=== PATIENT | male | born 2005 | race African-American/Black ===

== ENCOUNTER 2025-03-11 10:42 | Emergency (ER) | payer MEDICARE, SELFPAY ==
[2025-03-11 10:54] VITALS: BP 95/61; PULSE 48; RESP 20; TEMP 36.7; O2SAT 100
--- NOTE | 2025-03-11 11:14 | ED.GENADULT ---
HPI - General Adult General Chief complaint: Ear Stated complaint: ear infection/puffy face Time Seen by Provider: 03/11/25 11:15 Source: patient, RN notes reviewed and old records reviewed Mode of arrival: ambulatory Limitations: no limitations History of Present Illness HPI narrative: 19 year old patient accompanied by sister with complaints of left ear pain for the past few days with some ringing and some left upper facial swelling that started last night. Patient has been taking some cold medication for her symptoms reports moderate pain to her left ear with no drainage noted. Patient does have history of autism and asthma, hypertension and hydroplatic kidney. MD complaint: ear pain left ear Onset (ago): day(s) (few days with increased symptoms since last night) Severity: moderate Quality: aching Treatments prior to arrival: other (cold medication) Related Data Home Medications ?Medication ?Instructions ?Recorded ?Confirmed ?Last Taken ?Type albuterol sulfate 90 mcg/actuation inhalation 03/11/25 Unknown History aerosol inhaler amlodipine 5 mg tablet mg 03/11/25 Unknown History budesonide-formoterol HFA 80 2 inh inhalation Q12H 03/11/25 Unknown History mcg-4.5 mcg/actuation aerosol inhaler (Breyna) cholecalciferol (vitamin D3) 50 50 mcg PO DAILY 03/11/25 Unknown History mcg (2,000 unit) capsule (Vitamin D3) clindamycin phosphate 1 % lotion topical 03/11/25 Unknown History clonidine HCl 0.1 mg tablet mg 03/11/25 Unknown History desvenlafaxine succinate 25 mg mg PO 03/11/25 Unknown History tablet,extended release 24 hr hydroxyzine HCl 25 mg tablet mg 03/11/25 Unknown History montelukast 10 mg tablet mg 03/11/25 Unknown History triamcinolone acetonide 0.1 % topical 03/11/25 Unknown History topical ointment Allergies Allergy/AdvReac Type Severity Reaction Status Date / Time No Known Allergies Allergy Verified 03/11/25 11:11 Review of Systems Review of Systems: CONSTITUTIONAL: Denies malaise, chills, sweats, or fever. EYES: Denies visual changes, redness, or discharge. ENT: Reports rhinorrhea, congestion, sinus pain, left otalgia and no sore throat. CARDIOVASCULAR: Denies chest pain, palpitations, or edema. RESPIRATORY: Reports no cough.? Denies dyspnea. GASTROINTESTINAL: Denies abdominal pain, nausea, vomiting, diarrhea SKIN: Denies rash or itching. MUSCULOSKELETAL: Denies myalgia. NEUROLOGIC: Denies headache. All systems reviewed & are unremarkable except as noted in HPI and below PMFSH Past Medical History Medical History (Updated 03/13/25 @ 09:32 by Estephania Walden APRN) Uses feeding tube history in past Eczema Asthma Anxiety Hypertension Autism spectrum disorder Hypoplastic kidney Surgical History Surgical History (Updated 03/13/25 @ 09:27 by Estephania Walden APRN) History of cranial surgery x5 fused too soon [employer] (ventriculoperitoneal) shunt status Social History Social History (Updated 03/13/25 @ 09:29 by Estephania Walden APRN) Smoking status: Never smoker Alcohol intake: never Substance use: never Living arrangements: with family Additional gender identity comments: male but identifies as female Comments At time of signature, agree with nursing past medical, surgical, social and family history. There is no relevant family history pertinent to the presenting complaint Exam Narrative: GENERAL: Well-appearing, well-nourished, and in no acute distress. HEAD: Normocephalic EYES: PERRLA, conjunctivae clear ENT: Nares clear, turbinates edematous and erythematous, clear discharge,left facial tenderness with minimal swelling.. Mucous membranes moist.Left TM red, Right TM pearly avina with dull light reflex bilaterally; no tragal tenderness. Oropharynx erythematous without lesions. Tonsils not enlarged and without exudate, no drooling, no hoarseness, no trismus, uvula midline post nasal drainage noted NECK: Supple. No lymphadenopathy CHEST: Clear to auscultation, breath sounds equal. No wheezing, rhonchi, rales, or stridor. No respiratory distress, speaks in full sentences.no cough noted SAO2 100% on room air HEART: Regular rate and rhythm. No murmur heard. SKIN: Warm, dry, no rash. NEURO: Alert and oriented x3. PSYCH: Normal mood and affect Course Course Level of Care: Express Care Visit Vital Signs Vital signs: Vital Signs Temperature 36.7 C 03/11/25 10:54 Pulse Rate 48 L 03/11/25 10:54 Respiratory Rate 20 03/11/25 10:54 Blood Pressure 95/61 L 03/11/25 10:54 Pulse Oximetry 100 03/11/25 10:54 Oxygen Delivery Room Air 03/11/25 10:54 Temperature 36.7 C 03/11/25 10:54 Pulse Rate 48 L 03/11/25 10:54 Respiratory Rate 20 03/11/25 10:54 Blood Pressure 95/61 L 03/11/25 10:54 Pulse Oximetry 100 03/11/25 10:54 Oxygen Delivery Room Air 03/11/25 10:54 reviewed MDM MDM Narrative Medical decision making narrative: Patient with left otitis media and some left facial swelling and discomfort will treat with oral antibiotic and recommend supportive care measures. Anticipatory guidance and reasons to seek care in ED reviewed with patient and sister with understanding voiced. Differential Diagnosis Differential Diagnosis: Differential diagnostic considerations for upper respiratory infection include upper respiratory infection, croup, otitis media, sinusitis, viral infection, bronchitis, influenza, pharyngitis, strep, uvulitis.? Critical Care Time Critical Care Time Critical Care Time: No Discharge Plan Discharge Clinical Impression: Otitis media Qualifiers: Otitis media type: serous Chronicity: acute Laterality: left Recurrence: non-recurrent Qualified Code(s): H65.02 - Acute serous otitis media, left ear Patient Disposition: Home Condition: Stable Instructions: Antibiotic Form, Ear Infection (GEN) Additional Instructions: Increase fluids especially juices and water [id number] cough and cold medicine of your choice for your symptoms Zyrtec or Claritin daily Tylenol or ibuprofen for any fever pain for package directions heat to the face 20-30 minutes 4-6 times a day for pain Salt water gargles, throat lozenges or throat sprays as desired Antibiotic as directed--finished the medication Use your inhaler as ordered If your symptoms persist, change or worsen significantly before you can contact your personal physician then please, without delay, go to the emergency department for further evaluation. Follow-up with PCP in 7-10 days or sooner if needed Patient Language: Bengali Prescriptions: New cephalexin 250 mg/5 mL suspension for reconstitution 500 mg PO Q8H 7 Days Qty: 210 0RF Rx Instructions: take as prescribed No Action clonidine HCl 0.1 mg tablet amlodipine 5 mg tablet montelukast 10 mg tablet hydroxyzine HCl 25 mg tablet albuterol sulfate 90 mcg/actuation HFA aerosol inhaler INHALATION clindamycin phosphate 1 % lotion TOPICAL desvenlafaxine succinate 25 mg tablet extended release 24 hr PO budesonide-formoterol [Breyna] 80-4.5 mcg/actuation HFA aerosol inhaler 2 inh inhalation Q12H triamcinolone acetonide 0.1 % ointment TOPICAL cholecalciferol (vitamin D3) [Vitamin D3] 50 mcg (2,000 unit) capsule 50 mcg PO DAILY Follow-up/Referrals: PHYSICIAN NOT ON STAFF,NONSTAFF [Primary Care Provider] Time of Disposition: 11:23 Quality Evgeny Coma Scale Eyes: Open Verbal: Oriented and Alert Motor: Follows Commands Evgeny Coma Total Score: 15
== END 2025-03-11 11:25 | disposition home or self-care (01) ==
PROVIDERS: Emergency Provider Registered Nurse
DX: H65.02 Acute serous otitis media, left ear (principal); I10 Essential (primary) hypertension; F84.0 Autistic disorder; J45.909 Unspecified asthma, uncomplicated; F41.9 Anxiety disorder, unspecified; Q60.5 Renal hypoplasia, unspecified
CPT/HCPCS: 99203; G0463